=== PATIENT | female | born 1975 | race Caucasian/White ===

== ENCOUNTER 2018-09-09 14:16 | Outpatient (CLI) | payer BC ==
--- NOTE | 2018-09-09 16:36 | ULT ---
RIGHT BREAST/AXILLA ULTRASOUND: 09/09/18 HISTORY: 43-year-old female presents with right axillary tenderness. The region of painful concern was evaluat ed with ultrasound and is indeed in the right axillary region and does not involve the breast. There is no evidence for solid or cystic mass. This corresponds to an area of minimal soft tissue asymmetry seen on the mammogram, compared to a prior 2016 mammography, this was stable from that time. IMPRESSION: No solid or cystic mass or adenopathy in the region of the right axilla. Slightly asymmetric soft tis abraham in the region of painful concern. If this area of asymmetry and pain does not resolve or considerably worsens, short term followup ultr asound study might be considered. POS: OFF
== END 2018-09-09 14:17 | disposition home or self-care (01) ==
LOC: BICMAMMO 14:16
PROVIDERS: ATTEND Physician Assistant
DX: N64.4 Mastodynia (principal); N64.89 Other specified disorders of breast; Z80.3 Family history of malignant neoplasm of breast
CPT/HCPCS: 77066; G0279

== ENCOUNTER 2019-02-25 07:49 | Outpatient (CLI) | payer BC ==
[2019-02-25] MEDS ORDERED: Gadobenate Dimeglumine 529 MG/1 ML (20ML VIAL) ONE (09:00)
--- NOTE | 2019-02-25 09:47 | MRI ---
FLumbar spine MRI with and without contrast: 02/25/2019 COMPARISON: 04/11/2013 MRI lumbar spine without contrast HISTORY: Left-sided radiculopathy, reevaluate Tarlov cyst at S2 TECHNIQUE: Multiplanar multisequence MR imaging of the lumbar spine provided with and without contras t FINDINGS: There appears to be a transitional vertebral body at the lumbosacral junction which will be labeled L5 for the purposes of this examination. Thus, conus medullaris terminates at the T12-L1 lev el. T12-L1: Intervertebral disc height and signal intensity appears within normal limits with no central canal or neural foraminal stenosis. L1-2: Intervertebral disc height and signal intensity within normal limits with no central canal or n eural foraminal stenosis. L2-3: Intervertebral disc height and signal intensity within normal limits. Mild facet hypertrophy pr esent on the left with a probable tiny medial left sided synovial cyst measuring in the 3 mm range. N o associated neural foraminal stenosis. L3-4: Intervertebral disc height and signal intensity appears grossly unremarkable with no significan t central canal or neural foraminal stenosis. Mild bilateral facet hypertrophy. L4-5: Mild bilateral facet hypertrophy. Intervertebral disc height and signal intensity appears withi n normal limits with no significant central canal or neural foraminal stenosis L5-S1: Mild disc space narrowing, stable. No significant central canal or neural foraminal stenosis. No anterolisthesis or retrolisthesis is noted within the lumbar spine. As seen on the prior examination, there is a T2 hyperintense left paramidline lesion at the S1 level measuring 1.2 cm in craniocaudal dimension, slightly increased in size when compared to the prior kathie dy, at which time this lesion measured 4 mm in craniocaudal dimension. Prior examination also demonst rated two round T2 hyperintense lesions dorsal to the S2 level measuring 1.3 cm in craniocaudal dimen cami each, both slightly enlarged when compared to the prior examination, now measuring in the 1.5-1. 6 cm range in the craniocaudal dimension. The post contrast imaging demonstrates no abnormal enhancem ent. Findings are consistent with a Tarlov cyst demonstrating minimal interval growth. Image retroperitoneal structures demonstrate no acute findings. Postcontrast imaging demonstrates no abnormal enhancement involving the contents of the thecal sac, i ignacio osseous structures, or intervertebral disks. IMPRESSION: No significant central canal or neural foraminal stenosis. Multiple round T2 hyperintense lesions associated with the sacrum as detailed above, most consistent with Tarlov cysts, demonstrati ng mild interval growth as above.
== END 2019-02-25 07:50 | disposition home or self-care (01) ==
LOC: SCSMRI 07:49
PROVIDERS: ATTEND Neurological Surgery
DX: M54.16 Radiculopathy, lumbar region (principal); M53.3 Sacrococcygeal disorders, not elsewhere classified
CPT/HCPCS: 72158; A9577

== ENCOUNTER 2022-01-09 08:08 | Outpatient (CLI) | payer BC | END 2022-01-09 08:09 | disposition home or self-care (01) | LOC: BICMAMMO 08:08 | PROVIDERS: ATTEND Family Medicine | DX: Z12.31 Encounter for screening mammogram for malignant neoplasm of breast (principal); Z80.3 Family history of malignant neoplasm of breast | CPT/HCPCS: 77063; 77067 ==

== ENCOUNTER 2022-03-12 11:58 | Outpatient (CLI) | payer BC | END 2022-03-12 11:59 | disposition home or self-care (01) | LOC: BICRAD 11:58 | PROVIDERS: ATTEND Family Medicine | DX: M25.511 Pain in right shoulder (principal); M19.011 Primary osteoarthritis, right shoulder ==

== ENCOUNTER 2024-06-28 15:27 | Outpatient (CLI) | payer BC | END 2024-06-28 15:28 | disposition home or self-care (01) | LOC: BICMAMMO 15:27 | PROVIDERS: ATTEND Family Medicine | DX: Z12.31 Encounter for screening mammogram for malignant neoplasm of breast (principal); Z80.3 Family history of malignant neoplasm of breast | CPT/HCPCS: 77063; 77067 ==

== ENCOUNTER 2025-11-01 14:53 | Outpatient (CLI) | payer BC | END 2025-11-01 14:54 | disposition home or self-care (01) | LOC: BICMAMMO 14:53 | PROVIDERS: ATTEND Family Medicine | DX: Z12.31 Encounter for screening mammogram for malignant neoplasm of breast (principal); Z80.3 Family history of malignant neoplasm of breast | CPT/HCPCS: 77063; 77067 ==